=== PATIENT | female | born 1990 | race American Indian/Alaskan Native ===

== ENCOUNTER 2016-12-10 06:06 | Emergency (ER) | payer SELFPAY ==
[2016-12-10 06:54] LABS: Mean Corpuscular HGB Conc 29 % (30-34)
[2016-12-10 07:04] LABS: Mean Corpuscular Volume 73 fl (79-97); Platelet Count 179 K/mm3 (140-440); Red Blood Count 3.71 M/mm3 (3.65-5.03); White Blood Count 6.5 K/mm3 (4.5-11.0)
[2016-12-10 07:06] LABS: Hemoglobin 7.7 gm/dl (10.1-14.3); Mean Corpuscular Hemoglobin 21 pg (28-32); Red Cell Distribution Width 25.4 % (13.2-15.2)
--- NOTE | 2016-12-10 09:06 | Emergency Department Report ---
HPI - General Chief Complaint: Vaginal Bleeding Time Seen by Provider: 12/10/16 08:35 - HPI HPI: This is a 26-year-old Afro-[place] female presents to the emergency department with a complaint of some pelvic cramping and vaginal bleeding that started this morning. The patient says that it was a moderate amount of bleeding with clots. She denies any fever, chest pain, shortness of breath, nausea, vomiting , dysuria, vaginal discharge. She denies any past medical history. She says that she took a home test 2 about 2.5 months ago. She was due to see an [facility] later today "when this happened." No recent travel or sick contacts at home. She does not have a primary care physician. ED Past Medical Hx - Past Medical History Previous Medical History?: No - Surgical History Past Surgical History?: Yes Additional Surgical History: x1 - Social History Smoking Status: Current Every Day Smoker Substance Use Type: Alcohol, Marijuana - Medications Home Medications: Home Medications Medication Instructions Recorded Confirmed Last Taken Type Nitrofurantoin [place]/M-Cryst 100 mg PO BID #14 capsule 12/10/16 Unknown Rx [Macrobid CAP] ED Review of Systems ROS: Stated complaint: VAGINAL BLEEDING Other details as noted in HPI Comment: All other systems reviewed and negative Constitutional: denies: chills, fever Eyes: denies: eye pain, eye discharge, vision change ENT: denies: ear pain, throat pain Respiratory: denies: cough, shortness of breath, wheezing Cardiovascular: denies: chest pain, palpitations Gastrointestinal: abdominal pain (abdominal and/or pelvic cramping). denies: nausea, diarrhea Genitourinary: other (vaginal bleeding). denies: urgency, dysuria, discharge Musculoskeletal: denies: back pain, joint swelling, arthralgia Skin: denies: rash, lesions Neurological: denies: headache, weakness, paresthesias Physical Exam - Physical Exam Vital Signs: Vital Signs 12/10/16 06:09 Temperature 97.4 F L Pulse Rate 83 Respiratory 18 Rate Blood Pressure 120/77 O2 Sat by Pulse 100 Oximetry Physical Exam: GENERAL: The patient is well-developed well-nourished. HEENT: Normocephalic. Atraumatic. Extraocular motions are intact. Patient has moist mucous membranes. Pupils equal reactive to light bilaterally. NECK: Supple. Trachea is midline. CHEST/LUNGS: Clear to auscultation. There is no respiratory distress noted. HEART/CARDIOVASCULAR: Regular. There is no tachycardia. There is no gallop rub or murmur. ABDOMEN: Abdomen is soft. Mild lower abdominal tenderness to palpation. No guarding or rebound tenderness. Patient has normal bowel sounds. There is no abdominal distention. SKIN: Skin is warm and dry. NEURO: The patient is awake, alert, and oriented. The patient is cooperative. The patient has no focal neurologic deficits. The patient has normal speech. MUSCULOSKELETAL: There is no tenderness or deformity. There is no limitation range of motion. There is no evidence of acute injury. ED Course Vital Signs 12/10/16 06:09 Temperature 97.4 F L Pulse Rate 83 Respiratory 18 Rate Blood Pressure 120/77 O2 Sat by Pulse 100 Oximetry ED Medical Decision Making - Lab Data Result diagrams: 12/10/16 06:29 12/10/16 06:29 - Radiology Data Radiology results: report reviewed Transvaginal/pelvic ultrasound does not show any acute process. - Medical Decision Making 26-year-old female presents with one morning of cramping and vaginal bleeding. Labs show anemia of 7.7. Based on the amount of bleeding that the patient describes, I do not feel that her anemia is due to acute blood loss and patient does not have any paleness, tachycardia or signs of symptomatic anemia. Labs also show that the patient is not but she does have a significant urinary tract infection. Due to her lower abdominal and/or pelvic discomfort, a ultrasound was done that did not show any signs of ovarian torsion, ovarian cysts, uterine abnormalities or any acute processes. Otherwise patient appears in no acute distress. Vital signs stable throughout her ED course including being afebrile. Patient was given referrals for [facility]. She will return to the ER with any worsening of her symptoms or any acute distress. - Differential Diagnosis anemia, , UTI, fibroids Critical Care Time: No Critical care attestation.: If time is entered above; I have spent that time in minutes in the direct care of this critically ill patient, excluding procedure time. ED Disposition Clinical Impression: Vaginal bleeding, Dysfunctional uterine bleeding UTI (urinary tract infection) Qualifiers: Urinary tract infection type: acute cystitis Hematuria presence: with hematuria Qualified Code(s): N30.01 - Acute cystitis with hematuria Anemia Qualifiers: Anemia type: unspecified type Qualified Code(s): D64.9 - Anemia, unspecified Disposition: TO HOME OR SELFCARE Is pt being admited?: No Condition: Stable Instructions: Dysfunctional Uterine Bleeding (ED) Additional Instructions: Please follow-up with an [facility] service in the next few days. Return to the emergency department with any worsening of your symptoms or any acute distress. Prescriptions: Nitrofurantoin [place]/M-Cryst [Macrobid CAP] 100 mg PO BID #14 capsule Referrals: PRIMARY CARE [Primary Care Provider] - 3-5 Days [facility] [Provider Group] - 3-5 Days [facility] [Provider Group] - 3-5 Days [facility] [Provider Group] - 3-5 Days Time of Disposition: 11:37
[2016-12-10 09:51] LABS: Basophils % (Manual) 0 % (0.0-1.8); Blastocytes % (Manual) 0 %
[2016-12-10 09:53] LABS: Anisocytosis 2+; Diff Status Complete; Hypochromasia 2+
[2016-12-10 10:33] LABS: Anion Gap 16 mmol/L; BUN/Creatinine Ratio 16.66; Blood Urea Nitrogen 10 mg/dL (7-17); Calcium 8.4 mg/dL (8.4-10.2); Carbon Dioxide 21 mmol/L (22-30); Chloride 104.1 mmol/L (98-107); Glucose 103 mg/dL (65-100); Potassium 4.2 mmol/L (3.6-5.0); Sodium 137 mmol/L (137-145)
[2016-12-10 10:36] LABS: Iron 20 ug/dL (37-170); Total Iron Binding Capacity 413 mcg/dL (250-450)
[2016-12-10 10:56] LABS: Bacteria,Urine 1+ /HPF (Negative)
[2016-12-10 10:57] LABS: Bilirubin,Urine NEG (Negative); Blood,Urine MOD (Negative); Ketones,Urine NEG (Negative); Leukocyte Esterase,Urine TR (Negative); Nitrite,Urine NEG (Negative); Urobilinogen,Urine < 2.0 mg/dL (<2.0)
[2016-12-10 11:07] LABS: RBC,Urine > 182.0 /HPF (0.0-6.0)
--- NOTE | 2016-12-10 11:21 | Ultrasound Report ---
ULTRASOUND PELVIS DUPLEX DOPPLER COMPLETE - TRANSABDOMINAL AND TRANSVAGINAL: INDICATION: Pelvic pain. COMPARISON: None similar at this institution. FINDINGS: Transabdominal and transvaginal pelvic sonography with spectral Doppler performed in this patient with LMP of 12/08/2016 and demonstrates a 10.3 x 5.7 x 6.7 cm anteverted uterus with a 3.1 cm fibroid anteriorly, endovaginal image 7. Endometrial thickness approximately 7 mm. Minimal pelvic free fluid. Ovaries slightly prominent at 5.1 x 2.9 x 2.4 cm on the right and 4.9 x 2.4 x 4 cm on the left with few small physiologic follicles. Preserved bilateral ovarian blood flow. CONCLUSION: No acute pelvic sonographic abnormality with uterine fibroid noted, as described. Please correlate. Thank you for the opportunity to participate in this patient's care.
[2016-12-10] MEDS ORDERED: MACROBID PO ONE (11:46)
[2016-12-10 12:00] VITALS: BP 108/68
== END 2016-12-10 11:59 | disposition home or self-care (01) ==
LOC: ED 06:06
DX: N93.8 Other specified abnormal uterine and vaginal bleeding (principal); N30.01 Acute cystitis with hematuria; D64.9 Anemia, unspecified; F17.200 Nicotine dependence, unspecified, uncomplicated; F12.10 Cannabis abuse, uncomplicated
CPT/HCPCS: 36415; 76830; 80048; 81001; 83550; 84702; 85007; 85025; 86850; 86900; 86901; 93975; 99284

== ENCOUNTER 2017-09-30 16:56 | Emergency (ER) | payer SELFPAY ==
[2017-09-30 17:12] VITALS: BP 133/83
[2017-09-30 17:55] LABS: Bilirubin,Urine NEG (Negative); Blood,Urine NEG (Negative); Color,Urine Yellow (Yellow); Mucus,Urine 3+ /HPF; Urobilinogen,Urine < 2.0 mg/dL (<2.0)
[2017-09-30 17:57] LABS: HCG Qualitative,Urine Negative (Negative)
[2017-09-30] MEDS ORDERED: ZOFRAN ODT PO ONE (22:53)
[2017-09-30] MEDS ORDERED: NORCO 7.5/325 PO ONE (22:53)
[2017-09-30] MEDS ORDERED: NACL 0.9% 500 ML 500 ML IV ONE (23:02)
[2017-09-30] MEDS ORDERED: DILAUDID IV ONE (23:03)
[2017-09-30] MEDS ORDERED: ZOFRAN IV ONE (23:03)
--- NOTE | 2017-09-30 23:08 | Emergency Department Report ---
ED Abdominal Pain HPI - General Chief Complaint: Abdominal Pain Stated Complaint: ABD PAIN Time Seen by Provider: 09/30/17 22:52 Source: patient Mode of arrival: Ambulatory Limitations: No Limitations - History of Present Illness Initial Comments: 27-year-old -[place]i female comes to the emergency room complaining of right lower quadrant pain onset 4 AM this morning. Patient persists been nauseated and vomiting. She reports that the pain is worse with movement and palpation. Patient reports she took ibuprofen this morning and last dose was at 1:30 today. She reports that the pain medicine decreased her pain but never went away. She reports that the pain is constant and achy. She does admit to having heavy periods which last one was 09/10/2017. She denies any chest pain shortness of breathing dysuria. She does admit to chills decreased appetite sweats and pain with bowel movement. Patient reports a past medical history of anemia she currently takes no medication has no known drug allergies and she is a smoker. MD Complaint: abdominal pain -: This morning Time: 04:00 Location: RLQ Radiation: none Migration to: no migration Severity scale (0 -10): 8 Quality: aching Consistency: constant Improves With: medication (decreases pain) Associated Symptoms: nausea, vomiting, chills Treatments Prior to Arrival: NSAIDs (last dose 1:30 today) - Related Data LMP Date: 09/10/17 Previous Rx's Medication Instructions Recorded Last Taken Type Nitrofurantoin [place]/M-Cryst 100 mg PO BID #14 capsule 12/10/16 Unknown Rx [Macrobid CAP] Amoxicillin/Potassium Clav 1 each PO BID #20 tablet 10/01/17 Unknown Rx [Augmentin 875-125 Tablet] Ibuprofen [Motrin 600 MG tab] 600 mg PO Q8H PRN #30 tablet 10/01/17 Unknown Rx Allergies Allergy/AdvReac Type Severity Reaction Status Date / Time No Known Allergies Allergy Verified 09/30/17 17:10 ED Review of Systems ROS: Stated complaint: ABD PAIN Other details as noted in HPI Constitutional: chills Eyes: denies: eye pain, eye discharge, vision change ENT: denies: ear pain, throat pain Respiratory: denies: cough, shortness of breath, wheezing Cardiovascular: denies: chest pain, palpitations Endocrine: no symptoms reported Gastrointestinal: abdominal pain (right lower quadrant), nausea, vomiting, other (decreased appetite) Genitourinary: denies: urgency, dysuria, discharge Musculoskeletal: denies: back pain, joint swelling, arthralgia Skin: denies: rash, lesions Neurological: denies: headache, weakness, paresthesias Psychiatric: denies: anxiety, depression Hematological/Lymphatic: denies: easy bleeding, easy bruising ED Past Medical Hx - Past Medical History Additional medical history: anemia - Surgical History Additional Surgical History: x1 - Social History Smoking Status: Current Every Day Smoker Substance Use Type: Alcohol, Marijuana - Medications Home Medications: Home Medications Medication Instructions Recorded Confirmed Last Taken Type Nitrofurantoin [place]/M-Cryst 100 mg PO BID #14 capsule 12/10/16 Unknown Rx [Macrobid CAP] Amoxicillin/Potassium Clav 1 each PO BID #20 tablet 10/01/17 Unknown Rx [Augmentin 875-125 Tablet] Ibuprofen [Motrin 600 MG tab] 600 mg PO Q8H PRN #30 tablet 10/01/17 Unknown Rx ED Physical Exam - General Limitations: No Limitations General appearance: alert, in no apparent distress, other (nontoxic) - Head Head exam: Present: atraumatic, normocephalic - Eye Eye exam: Present: normal appearance - ENT ENT exam: Present: mucous membranes moist - Neck Neck exam: Present: normal inspection - Respiratory Respiratory exam: Present: normal lung sounds bilaterally. Absent: respiratory distress - Cardiovascular Cardiovascular Exam: Present: regular rate, normal rhythm. Absent: systolic murmur, diastolic murmur, rubs, gallop - GI/Abdominal GI/Abdominal exam: Present: soft, tenderness, guarding, rebound, normal bowel sounds. Absent: distended - Rectal Rectal exam: Present: deferred - Extremities Exam Extremities exam: Present: normal inspection, full ROM - Back Exam Back exam: Present: normal inspection - Neurological Exam Neurological exam: Present: alert, oriented X3 - Psychiatric Psychiatric exam: Present: normal affect, normal mood - Skin Skin exam: Present: warm, dry, intact, normal color. Absent: rash ED Course Vital Signs 09/30/17 17:10 Temperature 98.8 F Pulse Rate 81 Respiratory 18 Rate Blood Pressure 133/83 O2 Sat by Pulse 100 Oximetry - Reevaluation(s) Reevaluation #1: 10/01/17 04:18 Patient reports she feels much better after having pain medication and fluids. She reports that pain is still there but not as intense. Reexamination note. No periumbilical tenderness or pain elicited with palpitation. ED Medical Decision Making - Lab Data Result diagrams: 09/30/17 23:16 09/30/17 23:16 - Medical Decision Making Patient's been evaluated by this provider fast track. Orders have been ordered for urinalysis urine CBC CMP IV normal saline and Dilaudid 1 mg IV, normal saline 500 mL, Zofran and CT with contrast. Discussed with patient orders. Patient verbalized understanding. Spoke to Dr. Katz surgery. He discuss that patient is not having any periUmbilical pain at this time. That she can follow up next week with his office. Discussed with patient she needs to follow-up with [facility] and surgery. She can continue with ibuprofen for pain. Patient verbalized understanding. Critical care attestation.: If time is entered above; I have spent that time in minutes in the direct care of this critically ill patient, excluding procedure time. ED Disposition Clinical Impression: Ovarian cyst, right, Lung infection Ventral hernia Qualifiers: Obstruction and gangrene presence: without obstruction or gangrene Qualified Code(s): K43.9 - Ventral hernia without obstruction or gangrene Disposition: DC-01 TO HOME OR SELFCARE Is pt being admited?: No Does the pt Need Aspirin: No Condition: Stable Instructions: Abdominal Pain (ED), Ventral Hernia (ED) Additional Instructions: Please take antibiotics as prescribed and complete. Please take ibuprofen as prescribed. Please follow-up with [facility] as well as surgery. If symptoms persist or gets worse please follow up in the emergency room. Prescriptions: Amoxicillin/Potassium Clav [Augmentin 875-125 Tablet] 1 each PO BID #20 tablet Ibuprofen [Motrin 600 MG tab] 600 mg PO Q8H PRN #30 tablet PRN Reason: Pain Referrals: PRIMARY CARE, [Primary Care Provider] - 3-5 Days CONSUELO KATZ MD [Staff Physician] - 3-5 Days [facility] [Provider Group] - 3-5 Days [facility] [Provider Group] - 3-5 Days Forms: Work/School Release Form(ED), Accompanied Note
[2017-09-30 23:47] LABS: Mean Corpuscular HGB Conc 29 % (30-34); Mean Corpuscular Volume 72 fl (79-97); Platelet Count 149 K/mm3 (140-440); Red Blood Count 4.37 M/mm3 (3.65-5.03)
[2017-09-30 23:49] LABS: Hematocrit 31.6 % (30.3-42.9); Hemoglobin 9.2 gm/dl (10.1-14.3); Mean Corpuscular Hemoglobin 21 pg (28-32); Red Cell Distribution Width 25.5 % (13.2-15.2)
[2017-09-30 23:51] LABS: Alanine Aminotransferase 11 units/L (7-56); Albumin 4.8 g/dL (3.9-5); BUN/Creatinine Ratio 13; Blood Urea Nitrogen 8 mg/dL (7-17); Calcium 9.3 mg/dL (8.4-10.2); Hemolysis Index 2
--- NOTE | 2017-10-01 01:15 | Cat Scan Report ---
FINAL REPORT EXAM: CT ABDOMEN PELVIS W CON HISTORY: Right lower quadrant pelvic pain. TECHNIQUE: Axial CT images of the abdomen and pelvis were obtained, following the administration of intravenous contrast only. Delayed axial images and coronal and sagittal reformatted images were also obtained. No prior studies are available for comparison. FINDINGS: The liver, biliary tree, gallbladder, pancreas, spleen, adrenal glands, and kidneys are unremarkable. There is no urinary tract obstruction. Evaluation of the bowel is limited due to lack of oral contrast. There is a small hiatal hernia. The stomach is collapsed, not well evaluated. There is no intestinal obstruction or free air. Of note, the appendix is air-filled, normal in appearance. The colon is largely collapsed, and underlying wall thickening cannot be evaluated. There is a 1.5 cm fat containing right periumbilical ventral hernia. This contains a small amount of fluid at its anterior aspect, raising possibility of developing incarceration. Clinical correlation is recommended. The abdominal aorta is normal in caliber. There is no pathologic abdominal or pelvic lymphadenopathy. There is moderate pelvic free fluid. The uterus is somewhat prominent in appearance, query menstrual state. There is a cystic structure in the right adnexa measuring 5.3 x 6.7 x 7.9 cm. This contains rounded internal 4.1 cm well-circumscribed cyst, and there are feeding vessels at its inferior aspect. This probably represents complex ovarian cystic lesion. Cystic neoplasm is not excluded. The left ovary is located posteriorly, unremarkable. The urinary bladder is unremarkable. No discrete osseous abnormality is seen. There are several patchy peribronchovascular ground-glass opacities in the right lower lobe, nonspecific but most likely inflammatory or infectious small airways disease. IMPRESSION: 1. Normal CT appearance of the appendix. No intestinal obstruction or free air. 2. 5.3 x 6.7 x 7.9 cm slightly complex cystic lesion in the right adnexa, which contains rounded internal 4.1 cm well-circumscribed cyst. This is most likely complex right ovarian cyst or cystic neoplasm. Follow-up transvaginal pelvic ultrasound is recommended. Moderate pelvic free fluid. 3. Small 1.5 cm fat-containing right periumbilical ventral hernia, with a small amount of fluid at its anterior aspect, raising possibility of developing incarceration. Correlation with physical exam and clinical symptoms is recommended. 4. Nonspecific scattered patchy peribronchovascular ground-glass opacities in the right lower lobe, most likely inflammatory or infectious small airways disease.
[2017-10-01 02:54] LABS: Anisocytosis 2+; Basophils % (Manual) 0 % (0.0-1.8); Hypochromasia 2+; Total Cells Counted 100
[2017-10-01 02:55] LABS: Ovalocytes Few
--- NOTE | 2017-10-01 02:59 | Ultrasound Report ---
FINAL REPORT EXAM: US TRANSVAGINAL HISTORY: possible right ovarian cyst versus neoplasm COMPARISON: CT of the abdomen and pelvis from October 01, 2017. TECHNIQUE: Several real-time grayscale and color Doppler images were obtained. Transvaginal exam. FINDINGS: Uterus measures 10.7 x 8.7 x 7.8 centimeters. Endometrial stripe 10 millimeters within normal limits. At the anterior body of the uterus there is ill-defined hypoechoic structure measuring 5.9 x 5.0 by 3.7 centimeters. No other uterine lesions. Left ovary measures 4.7 x 2.7 x 3.8 centimeters. The right ovary measures 7.9 x 5.5 x 6.0 centimeters. Within the right ovary, there is a 4.3 x 4.8 x 4.8 centimeter hypoechoic avascular structure concerning for complex cyst. Endometrioma could have a similar appearance. No adnexal masses. Small amount of free fluid in the pelvis. IMPRESSION: Hypoechoic avascular structure in the right ovary measuring 4.8 centimeters corresponding to lesion seen on earlier CT of the abdomen pelvis. This may reflect a hemorrhagic or proteinaceous cyst. Endometrioma could have a similar appearance. Follow-up study in 6-8 weeks suggested to assess stability versus resolution. Prominent fibroid at the anterior body of the uterus measuring 5.9 centimeters. Left ovary is grossly unremarkable. Small amount of free fluid in the pelvis.
== END 2017-10-01 04:20 | disposition home or self-care (01) ==
LOC: ED 16:56
DX: N83.201 Unspecified ovarian cyst, right side (principal); J18.9 Pneumonia, unspecified organism; K43.9 Ventral hernia without obstruction or gangrene; F17.200 Nicotine dependence, unspecified, uncomplicated; F12.10 Cannabis abuse, uncomplicated
CPT/HCPCS: 36415; 74177; 76830; 80053; 81001; 81025; 85007; 85025; 96361; 96374; 96375; 99284; J1170; J2405; J7040; Q9967